=== PATIENT | female | born 1995 | race Caucasian/White ===

== ENCOUNTER 2017-05-28 10:22 | Emergency (ER) | payer SELFPAY ==
[2017-05-28] MEDS ORDERED: NS 0.9% 1000 ML* 1,000 ML IV ONE (10:53)
[2017-05-28 11:30] LABS: Hematocrit 41 % (35-47); Hemoglobin 13.8 g/dl (12.0-16.0); Mean Corpuscular HGB Conc 34 g/dl (31-36); Mean Corpuscular Hemoglobin 31 pg (27-31); Mean Corpuscular Volume 93 fL (80-97); Mean Platelet Volume 8 um3 (7.4-10.4); Red Blood Count 4.41 10^6/ul (4.0-5.4); Red Cell Distribution Width 12 % (10.5-15); White Blood Count 9.9 10^3/ul (3.5-10.8)
[2017-05-28 11:34] LABS: Urine Bacteria Absent (Absent); Urine Bilirubin Negative (Negative); Urine Glucose Negative (Negative); Urine Nitrite Negative (Negative)
[2017-05-28 11:43] LABS: ALT 13 U/L (7-52); AST 30 U/L (13-39); Albumin 4.6 g/dL (3.2-5.2); Alkaline Phosphatase 46 U/L (34-104); Anion Gap 8 mmol/L (2-11); BUN/Creatinine Ratio 16.9 (8-20); Blood Urea Nitrogen 13 mg/dL (6-24); CO2 Carbon Dioxide 24 mmol/L (22-32); Calcium 9.6 mg/dL (8.6-10.3); Chloride 103 mmol/L (101-111); Creatine Kinase 298 U/L (10-223); EGFR African American 120.6 (>60); EGFR Non-African American 93.7 (>60); Globulin 2.8 g/dL (2-4); Glucose 93 mg/dL (70-100); Potassium 3.9 mmol/L (3.5-5.0); Sodium 135 mmol/L (133-145); Total Protein 7.4 g/dL (6.4-8.9)
[2017-05-28 11:58] LABS: Benzodiazepine Urine Screen None Detected (None Detect)
[2017-05-28 12:09] LABS: Alcohol < 10 mg/dL (<10)
--- NOTE | 2017-05-28 12:29 | RAD ---
Indication: Approximate 25 foot fall. Back pain. Ambulating. Comparison: No relevant prior exams available on the [facility] [place] comparison. Technique: Noncontrast CT vertex of skull through foramen magnum. Report: The sulci, ventricles, and basal cisterns are normal for age. Estevez matter white matter differentiation is preserved without evidence for edema. No intra or extra axial hemorrhage is detected. Unremarkable visualized orbital contents. Negative for calvarial or skull base fracture. Negative for scalp hematoma. The visualized paranasal sinuses and mastoid air spaces are clear. IMPRESSION: No CT evidence for traumatic brain injury. Negative exam.
--- NOTE | 2017-05-28 12:32 | RAD ---
INDICATION: 25 foot fall. Back pain. COMPARISON: No relevant prior exams available on the [facility] for comparison. TECHNIQUE: Multidetector CT images foramen magnum to lung apices without contrast. Multiplanar reformation. REPORT: Normal vertebral alignment accounting for exam positioning without spondylolisthesis or subluxation at any level. Negative for cervical vertebral body or posterior element fracture. 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 Negative for paravertebral hematoma. Preserved disc spaces. IMPRESSION: No CT evidence for traumatic injury of the cervical spine.
--- NOTE | 2017-05-28 12:39 | RAD ---
Indication: 25 foot fall. Back pain. Ambulating. Comparison: None. Technique: Noncontrast CT thoracic spine. Multiplanar reformation. Report: Negative for thoracic vertebral body or posterior element fracture at any level. Normal vertebral alignment throughout. Preserved disc spaces. Negative for paravertebral hematoma. Clear partially visualized lungs and pleural spaces. IMPRESSION: No CT evidence for traumatic thoracic spine injury.
--- NOTE | 2017-05-28 12:43 | RAD ---
Indication: 25 foot fall. Back pain. Comparison: No relevant prior exams available on the [facility] for comparison. Technique: Noncontrast CT lumbar sacral spine. Multiplanar reformation. Report: Chronic appearing bilateral L5 spondylolysis with flanking osteosclerosis. Negative for associated spondylolisthesis. No acute vertebral body or posterior element fracture evident. Negative for paravertebral hematoma. T12-L1: Unremarkable disc level for age without acquired spinal stenosis. L1-L2: Unremarkable disc level for age without acquired spinal stenosis. L2-L3: Unremarkable disc level for age without acquired spinal stenosis. L3-L4: Unremarkable disc level for age without acquired spinal stenosis. L4-L5: Suggestion of minimal annular disc bulge. Negative for acquired spinal stenosis. L5-S1: Suggestion of minimal annular disc bulge. Negative for acquired spinal stenosis. IMPRESSION: 1. No acute traumatic injury of the lumbar sacral spine evident. 2. Chronic appearing bilateral L5 spondylolysis without associated spondylolisthesis. 3. Mild L4-L5 and L5-S1 degenerative spondylosis.
[2017-05-28 14:12] VITALS: BP 120/58
--- NOTE | 2017-05-28 17:32 | ED ---
Nitin Castillo SooYoung, scribed for Angel Cornelius MD on 05/28/17 at 1048 . Back Pain - HPI Summary HPI Summary: A 22 y/o F presents to ED with worsening mid-back pain onset last night after trauma. Pt had been drinking, and was sitting on a window ledge. She leaned out , lost her balance, and fell over, landing on the ground on her back. The ground was a hill, and she tumbled down the hill. Pt is unsure if she had LOC. She was able to ambulate at the scene and denies immediate onset of pain. Per friend, the window was approx 20 ft off the ground. Pt took a "pain killer" after the fall. Pt went home to sleep and had 1 episode of urinary incontinence during the night. Associated sx: urinary incontinence (1x), dizziness. Denies: neck pain, hip pain, LE pain, bowel incontinence. [facility]: two weeks ago. - History of Current Complaint Chief Complaint: EDBackInjuryPain Stated Complaint: FELL OUT OF A WINDOW/APPROX 25FT Time Seen by Provider: 05/28/17 10:41 Hx Obtained From: Patient, Family/Parking Meter Collector - friend present Onset/Duration: Sudden Onset, Lasting Hours, Still Present Onset/Duration: Started Hours Ago, Traumatic, Still Present Timing: Constant Back Pain Location: Is Discrete @ - mid-back Severity Initially: Moderate Severity Currently: Moderate Pain Intensity: 6 Pain Scale Used: 0-10 Numeric Associated Signs And Symptoms: Positive: Bladder Incontinence, Other - pos: dizziness; neg: neck pain, hip pain, LE pain. Negative: Bowel Incontinence - Allergies/Home Medications Allergies/Adverse Reactions: Allergies Allergy/AdvReac Type Severity Reaction Status Date / Time No Known Allergies Allergy Verified 05/28/17 10:29 PMH/Surg Hx/FS Hx/Imm Hx Previously Healthy: Yes Musculoskeletal History: Denies: Hx Rheumatoid Arthritis, Hx Osteoporosis Opthamlomology History: Denies: Hx Legally Blind EENT History: Denies: Hx Deafness Infectious Disease History: No Infectious Disease History: Denies: Traveled Outside the [place] in Last 30 Days - Family History Known Family History: Positive: None - denies Negative: Cardiac Disease, Hypertension, Diabetes - Social History Occupation: Student Lives: Dormitory/Roommates Review of Systems Negative: Fever Positive: incontinence - urinary 1x Positive: Other - pos: middle back pain. neg: LE pain, neck pain, hip pain Neurological: Other - pos: dizziness All Other Systems Reviewed And Are Negative: Yes Physical Exam - Summary Physical Exam Summary: Nurse Lia chaperoned rectal exam. Sphincter tone is normal. VITAL SIGNS: Reviewed. GENERAL: Patient is a well-developed and nourished FEMALE who is lying comfortable in the stretcher. Patient is not in any acute respiratory distress. Pt has ETOH on her breath. HEAD AND FACE: No signs of trauma. No ecchymosis, hematomas or skull depressions. No sinus tenderness. EYES: PERRLA, EOMI x 2, No injected conjunctiva, no nystagmus. EARS: Hearing grossly intact. Ear canals and tympanic membranes are within normal limits. MOUTH: Oral mucosa is dry, otherwise oropharynx is within normal limits. NECK: Supple, trachea is midline, no adenopathy, no JVD, no carotid bruit, no c- spine tenderness, neck with full ROM. CHEST: Symmetric, no tenderness at palpation LUNGS: Clear to auscultation bilaterally. No wheezing or crackles. CVS: Regular rate and rhythm, S1 and S2 present, no murmurs or gallops appreciated. ABDOMEN: Soft, non-tender. No signs of distention. No rebound, no guarding, and no masses palpated. Bowel sounds are normal. EXTREMITIES: FROM in all major joints, no edema, no cyanosis or clubbing. NEURO: Alert and oriented x 3. No acute neurological deficits. Speech is normal and follows commands. SKIN: Dry and warm. R pinky finger shows swelling and erythema, with pus formation. Triage Information Reviewed: Yes Vital Signs On Initial Exam: Initial Vitals Temp Pulse Resp BP Pulse Ox 98.2 F 83 16 118/71 100 05/28/17 10:24 05/28/17 10:24 05/28/17 10:24 05/28/17 10:24 05/28/17 10:24 Vital Signs Reviewed: Yes Procedures - Incision and Drainage Site: R pinky finger Anesthesia: Other - None Instrument(s): Scalpel - 11 blade Packing: Other - None Diagnostics - Vital Signs Vital Signs Temp Pulse Resp BP Pulse Ox 05/28/17 10:24 98.2 F 83 16 118/71 100 - Laboratory Lab Results: Lab Results 05/28/17 05/28/17 05/28/17 Range/Units 11:15 11:15 11:15 WBC 9.9 (3.5-10.8) 10^3/ul RBC 4.41 (4.0-5.4) 10^6/ul Hgb 13.8 (12.0-16.0) g/dl Hct 41 (35-47) % MCV 93 (80-97) fL MCH 31 (27-31) pg MCHC 34 (31-36) g/dl RDW 12 (10.5-15) % Plt Count 249 (150-450) 10^3/ul MPV 8 (7.4-10.4) um3 Neut % (Auto) 81.0 (38-83) % Lymph % (Auto) 11.8 L (25-47) % [place] % (Auto) 6.1 (1-9) % Eos % (Auto) 0.5 (0-6) % Baso % (Auto) 0.6 (0-2) % Absolute Neuts (auto) 8.0 H (1.5-7.7) 10^3/ul Absolute Lymphs (auto) 1.2 (1.0-4.8) 10^3/ul Absolute Monos (auto) 0.6 (0-0.8) 10^3/ul Absolute Eos (auto) 0 (0-0.6) 10^3/ul Absolute Basos (auto) 0.1 (0-0.2) 10^3/ul Absolute Nucleated RBC 0 10^3/ul Nucleated RBC % 0 Sodium 135 (133-145) mmol/L Potassium 3.9 (3.5-5.0) mmol/L Chloride 103 (101-111) mmol/L Carbon Dioxide 24 (22-32) mmol/L Anion Gap 8 (2-11) mmol/L BUN 13 (6-24) mg/dL Creatinine 0.77 (0.51-0.95) mg/dL Est GFR ( Amer) 120.6 (>60) Est GFR (Non-Af Amer) 93.7 (>60) BUN/Creatinine Ratio 16.9 (8-20) Glucose 93 (70-100) mg/dL Calcium 9.6 (8.6-10.3) mg/dL Total Bilirubin 0.30 (0.2-1.0) mg/dL AST 30 (13-39) U/L ALT 13 (7-52) U/L Alkaline Phosphatase 46 (34-104) U/L Total Creatine Kinase 298 H (10-223) U/L Total Protein 7.4 (6.4-8.9) g/dL Albumin 4.6 (3.2-5.2) g/dL Globulin 2.8 (2-4) g/dL Albumin/Globulin Ratio 1.6 (1-3) Beta HCG, Quant < 0.60 mIU/mL Urine Color Urine Appearance Urine pH (5-9) Ur Specific Howell (1.010-1.030) Urine Protein (Negative) Urine Ketones (Negative) Urine Blood (Negative) Urine Nitrate (Negative) Urine Bilirubin (Negative) Urine Urobilinogen (Negative) Ur Leukocyte Esterase (Negative) Urine WBC (Auto) (Absent) Urine RBC (Auto) (Absent) Ur Squamous Epith Cells (Absent) Urine Bacteria (Absent) Urine Glucose (Negative) Urine Opiates Screen None detected (None Detect) Ur Barbiturates Screen None detected (None Detect) Ur Phencyclidine Scrn None detected (None Detect) Ur Amphetamines Screen None detected (None Detect) U Benzodiazepines Scrn None detected (None Detect) Urine Cocaine Screen Presumptive positive H (None Detect) U Cannabinoids Screen None detected (None Detect) Serum Alcohol < 10 (<10) mg/dL 05/28/17 Range/Units 11:15 WBC (3.5-10.8) 10^3/ul RBC (4.0-5.4) 10^6/ul Hgb (12.0-16.0) g/dl Hct (35-47) % MCV (80-97) fL MCH (27-31) pg MCHC (31-36) g/dl RDW (10.5-15) % Plt Count (150-450) 10^3/ul MPV (7.4-10.4) um3 Neut % (Auto) (38-83) % Lymph % (Auto) (25-47) % [place] % (Auto) (1-9) % Eos % (Auto) (0-6) % Baso % (Auto) (0-2) % Absolute Neuts (auto) (1.5-7.7) 10^3/ul Absolute Lymphs (auto) (1.0-4.8) 10^3/ul Absolute Monos (auto) (0-0.8) 10^3/ul Absolute Eos (auto) (0-0.6) 10^3/ul Absolute Basos (auto) (0-0.2) 10^3/ul Absolute Nucleated RBC 10^3/ul Nucleated RBC % Sodium (133-145) mmol/L Potassium (3.5-5.0) mmol/L Chloride (101-111) mmol/L Carbon Dioxide (22-32) mmol/L Anion Gap (2-11) mmol/L BUN (6-24) mg/dL Creatinine (0.51-0.95) mg/dL Est GFR ( Amer) (>60) Est GFR (Non-Af Amer) (>60) BUN/Creatinine Ratio (8-20) Glucose (70-100) mg/dL Calcium (8.6-10.3) mg/dL Total Bilirubin (0.2-1.0) mg/dL AST (13-39) U/L ALT (7-52) U/L Alkaline Phosphatase (34-104) U/L Total Creatine Kinase (10-223) U/L Total Protein (6.4-8.9) g/dL Albumin (3.2-5.2) g/dL Globulin (2-4) g/dL Albumin/Globulin Ratio (1-3) Beta HCG, Quant mIU/mL Urine Color Yellow Urine Appearance Cloudy Urine pH 5.0 (5-9) Ur Specific Howell 1.020 (1.010-1.030) Urine Protein Negative (Negative) Urine Ketones Trace H (Negative) Urine Blood Negative (Negative) Urine Nitrate Negative (Negative) Urine Bilirubin Negative (Negative) Urine Urobilinogen Negative (Negative) Ur Leukocyte Esterase Trace H (Negative) Urine WBC (Auto) Trace(0-5/hpf) (Absent) Urine RBC (Auto) 1+(3-5/hpf) H (Absent) Ur Squamous Epith Cells Present H (Absent) Urine Bacteria Absent (Absent) Urine Glucose Negative (Negative) Urine Opiates Screen (None Detect) Ur Barbiturates Screen (None Detect) Ur Phencyclidine Scrn (None Detect) Ur Amphetamines Screen (None Detect) U Benzodiazepines Scrn (None Detect) Urine Cocaine Screen (None Detect) U Cannabinoids Screen (None Detect) Serum Alcohol (<10) mg/dL Result Diagrams: 05/28/17 11:15 05/28/17 11:15 Lab Statement: Any lab studies that have been ordered have been reviewed, and results considered in the medical decision making process. - CT BRAIN CT CT Interpretation: No Acute Changes - IMPRESSION: No evidence for traumatic brain injury. Negative exam. ED physician has reviewed this radiology report and agrees. CT Interpretation Completed By: Radiologist C-SPINE CT CT Interpretation: No Acute Changes - IMPRESSION: No CT evidence for traumatic injury of C-spine. ED physician has reviewed this radiology report and agrees CT Interpretation Completed By: Radiologist T-Spine CT CT Interpretation: No Acute Changes - IMPRESSION: No CT evidence for traumatic injury of T-spine. ED physician has reviewed this radiology report and agrees L Spine CT CT Interpretation: Positive (See Comments) - IMPRESSION: 1. No acute traumatic injury of the lumbar sacral spine evident. 2. Chronic appearing bilateral L5 spondylolysis without associated spondylolisthesis. 3. Mild L4-L5 and L5-S1 degenerative spondylosis. ED physician has reviewed this radiology report and agrees CT Interpretation Completed By: Radiologist Re-Evaluation - Re-Evaluation 1 Re-Evaluation Time: 13:14 Change: Improved Comment: Discussing results and plans for dispo with pt. Pt voiced understanding. Brief. PE upon reval, pt is without pain, ambulates with steady gait, and A&Ox3. 2 Re-Evaluation Time: 13:35 Change: Unchanged Comment: Prior to D/C, looked at pt's R little finger which was bandaged. Removed bandage, pt has paronychia, will do I&D. Back Pain Course/Dx - Course Course Of Treatment: A 22 y/o F presents to ED with worsening mid-back pain onset last night after trauma. Pt had been drinking, and was sitting on a window ledge. She leaned out, lost her balance, and fell over, landing on the ground on her back. The ground was a hill, and she tumbled down the hill. Pt is unsure if she had LOC. She was able to ambulate at the scene and denies immediate onset of pain. Per friend, the window was approx 20 ft off the ground. Pt took a "pain killer" after the fall. Pt went home to sleep and had 1 episode of urinary incontinence during the night. Associated sx: urinary incontinence (1x), dizziness. Denies: neck pain, hip pain, LE pain, bowel incontinence. Test results are without significant abnormalitiy except creatinine kinase was 298. Urine toxicology was positive for cocaine. Brain CT, C-spine CT, T-spine CT are all negative. L-spine CT shows "1. No acute traumatic injury of the lumbar sacral spine evident. 2. Chronic appearing bilateral L5 spondylolysis without associated spondylolisthesis. 3. Mild L4-L5 and L5-S1 degenerative spondylosis.". Pt is ambulating, has minimal pain. She did not require pain medication. Right before D/C, pt showed me her R pinky, which has paronychia. I performed an I&D, pt will take her meds and await the cultures. Pt is hemodynamically stable, A&Ox3. Pt ambulated out of ED. - Diagnoses Differential Diagnosis/HQI/PQRI: Positive: Cauda Equina Syndrome, Fracture, Herniated Disc, Strain, Sprain Provider Diagnoses: Accidental fall, Back pain, Paronychia Discharge - Discharge Plan Condition: Stable Disposition: ADMITTED TO [facility] Prescriptions: Naproxen TAB* [Naprosyn 250 mg TAB*] 500 mg PO Q8H PRN #20 tab PRN Reason: Pain Patient Education Materials: Fall Prevention (ED), Back Pain (ED), Naproxen ( By mouth) Referrals: [facility], [facility]–1983 - Nik AGUILAR [Primary Care Provider] - 2 Days Additional Instructions: Follow up with your primary care provider in 2 days. Please return to the ED if you experience new or worsening symptoms. The documentation as recorded by the Nitin fraser SooYoung accurately reflects the service I personally performed and the decisions made by , Angel Cornelius MD.
--- NOTE | 2017-05-29 09:45 | PN ---
Progress Note - Progress Note Date of Service: 05/28/17 Note: Patient's wound, paronychia was drained while in ED yesterday. Treated with amoxicillin. spoke with patient at 9:40pm and stated she feels like it may be a little swollen but it has been getting better for the most part. Culture grew s. aureus positive and MRSA negative. amoxicillin should be sufficient at this time as it covers s aureus. will follow up with [facility] in 2 days if symptoms return, worse or are not improving. educated on worsening signs and symptoms.
== END 2017-05-28 14:12 | disposition short-term general hospital (02) ==
LOC: ED 10:22
DX: M54.9 Dorsalgia, unspecified (principal); L03.011 Cellulitis of right finger; W13.4XXA Fall from, out of or through window, initial encounter; Y92.9 Unspecified place or not applicable; A49.01 Methicillin susceptible Staphylococcus aureus infection, unspecified site
CPT/HCPCS: 26010; 36415; 70450; 72125; 72128; 72131; 80053; 80307; 80320; 81003; 81015; 82550; 84702; 85025; 87070; 87077; 87086; 87186; 87205; 87640; 87641; 99283; G0480